=== PATIENT | male | born 2005 | race Caucasian/White ===

== ENCOUNTER 2024-02-08 10:47 | Emergency (ER) | payer BC ==
[~2024-02-08] VITALS: Ht 182.9 cm; Wt 72.6 kg
[2024-02-08] MEDS ORDERED: IBUP-1955 PO (11:44)
[2024-02-08 12:11] VITALS: BP 109/66; O2SAT 97
== END 2024-02-08 12:18 | disposition home or self-care (01) ==
LOC: ER 10:52
DX: S93.491A Sprain of other ligament of right ankle, initial encounter (principal); Z79.899 Other long term (current) drug therapy; X58.XXXA Exposure to other specified factors, initial encounter; Y93.67 Activity, basketball; Y92.89 Other specified places as the place of occurrence of the external cause; Y99.8 Other external cause status
CPT/HCPCS: 73610; A4606; A4663